=== PATIENT | male | born 1995 | race African-American/Black ===

== ENCOUNTER 2019-09-23 17:05 | Emergency (ER) | payer OTHER ==
[~2019-09-23] VITALS: Ht 185.4 cm; Wt 92.1 kg
[2019-09-23 17:18] VITALS: BP 112/65
--- NOTE | 2019-09-23 17:23 | NUR ---
ED Nurse Note: Patient walked in c/o nasal congestion and productive cough x 4 days. Temp 98.8 F in the ER. Pt denies any pain at this time. A&O x4, V/S stable with no s/s of acute distress noted at this time. PA at bedside evaluating the patient.
[2019-09-23] MEDS ORDERED: Albuterol ud Inhalation HHN ONE (17:45)
--- NOTE | 2019-09-23 17:55 | Emergency Room Report ---
History of Present Illness General Chief Complaint: Upper Respiratory Illness Source: Patient Present Illness HPI 24-year-old male presents to the emergency department complaining nasal congestion, rhinorrhea and persistent cough x4 days. He denies fevers or chills. Denies sore throat, ear pain, high fevers, lethargy, neck pain/ stiffness, irritability, photophobia dehydration, N/V/D. Denies Cp, Palpitations , LOC, AMS, seizures, paresthesias, or changes in Hearing or vision, no Sudden severe ACEVEDO. Denies hx of smoking, or COPD. He reports hx of asthma. Denies recent travel. Denies contact with persons who have tested positive for or are under investigation/quarantine for COVID-19. Allergies: Coded Allergies: No Known Allergies (Unverified , 09/23/19) Patient History Past Medical History: see triage record Past Surgical History: none Pertinent Family History: none Immunizations: UTD Reviewed Nursing Documentation: PMH: Agreed; PSxH: Agreed Nursing Documentation-PMH Hx Asthma: Yes Review of Systems All Other Systems: negative except mentioned in HPI Physical Exam Vital Signs Date Time Temp Pulse Resp B/P (MAP) Pulse Ox O2 Delivery O2 Flow Rate FiO2 09/23/19 17:18 98.8 59 18 112/65 96 Room Air Sp02 EP Interpretation: reviewed, normal General Appearance: no apparent distress, alert, GCS 15, non-toxic Head: normocephalic, atraumatic Eyes: bilateral eye normal inspection, bilateral eye PERRL ENT: hearing grossly normal, normal pharynx, normal voice, TMs + canals normal , uvula midline, moist mucus membranes, nasal congestion Neck: full range of motion Respiratory: chest non-tender, no rhonchi, no respiratory distress, no accessory muscle use, speaking full sentences, wheezing - expiratory-mild Cardiovascular #1: regular rate, rhythm, no edema Musculoskeletal: normal range of motion, gait/station normal, non-tender Neurologic: alert, motor strength/tone normal, oriented x3, sensory intact, responsive, speech normal Psychiatric: judgement/insight normal Lymphatic: no adenopathy Medical Decision Making PA Attestation Dr. Figueredo Is my supervising Physician whom patient management has been discussed with. Diagnostic Impression: Primary Impression: Bronchitis, acute, with bronchospasm Additional Impression: Nasal congestion ER Course 24-year-old male presents to the emergency department complaining nasal congestion, rhinorrhea and persistent cough x4 days. He denies fevers or chills. Denies sore throat, ear pain, high fevers, lethargy, neck pain/ stiffness, irritability, photophobia dehydration, N/V/D. Denies Cp, Palpitations , LOC, AMS, seizures, paresthesias, or changes in Hearing or vision, no Sudden severe ACEVEDO. Denies hx of smoking, or COPD. He reports hx of asthma. Denies recent travel. Denies contact with persons who have tested positive for or are under investigation/quarantine for COVID-19. Ddx considered but are not limited to URI, pneumonia, PE, strep pharyngitis, meningitis. Vital signs: Pt.is afebrile VS are WNL H&PE are most consistent with bronchitis ORDERS: none required at this time, the diagnosis is clinical ED INTERVENTIONS: -Albuterol HHN DISCHARGE: At this time pt. is stable for d/c to home. Will provide printed patient care instructions, and any necessary prescriptions. Care plan and follow up instructions have been discussed with the patient prior to discharge. Last Vital Signs Date Time Temp Pulse Resp B/P (MAP) Pulse Ox O2 Delivery O2 Flow Rate FiO2 09/23/19 17:18 59 18 Room Air 09/23/19 17:18 98.8 112/65 (81) 96 Disposition: HOME, SELF-CARE Condition: Stable Scripts Cetirizine Hcl/Pseudoephedrine (ZYRTEC-D TABLET) 1 Each Tab.er.12h 1 EACH ORAL Q12HR, #20 TAB Prov: Celi White 09/23/19 Albuterol Sulfate* (ALBUTEROL SULFATE HHN*) 2.5 Mg/3 Ml Vial.neb 3 ML INH Q6H PRN for Shortness of Breath, #30 EA 0 Refills Prov: Celi White 09/23/19 Albuterol Sulfate* (ALBUTEROL SULFATE MDI*) 8.5 Gm Hfa.aer.ad 2 PUFF INH Q3H, #1 INH 0 Refills Prov: Celi White 09/23/19 Codeine/Promethazine Hcl* (PROMETHAZINE-CODEINE SYRUP*) 118 Ml Syrup 5 ML ORAL Q6H PRN for For Cough, #120 ML 0 Refills Prov: Celi White 09/23/19 Referrals: [facility] (PCP) Patient Instructions: Acute Bronchitis, [id number] Additional Instructions: Take medications as directed. Do not drink alcohol, drive, or operate heavy machinery while taking Cough Syrup as this may cause drowsiness. Follow up with a Primary Care Provider in 3-5 days, even if your symptoms have resolved. --Please review list of primary care clinics, if you do not already have a primary care provider Return sooner to ED if new symptoms occur, or current symptoms become worse. - Please note that this Emergency Department Report was dictated using [employer] technology software, occasionally this can lead to erroneous entry secondary to interpretation by the dictation equipment. Celi White Sep 23, 2019 17:55
[2019-09-23] MEDS ORDERED: ALBUTEROL2.5 MG/3 M INH (17:56)
[2019-09-23] MEDS ORDERED: ALBUTEROL SULF8.5 GM INH (17:56)
[2019-09-23] MEDS ORDERED: ZYRTEC-D TABLE1 EACH ORAL (17:56)
[2019-09-23] MEDS ORDERED: PROMETHAZINE-C118 M1 ORAL (17:56)
[2019-09-23 18:16] VITALS: BP 112/65
--- NOTE | 2019-09-23 18:16 | NUR ---
ER DISCHARGE NOTE: Patient is cleared to be discharged per [facility] AGUSTIN, pt is aox4, on room air, with stable vital signs. pt was given dc and prescription instructions, pt was able to verbalize understanding, pt id band removed without complications. pt is able to ambulate with steady gait. pt took all belongings.
== END 2019-09-23 18:16 | disposition home or self-care (01) ==
LOC: EMR 17:46
DX: J20.9 Acute bronchitis, unspecified (principal); R09.81 Nasal congestion
CPT/HCPCS: 99283